=== PATIENT | male | born 1970 | race Caucasian/White ===

== ENCOUNTER 2016-10-21 17:41 | Emergency (ER) | payer MEDICAID ==
[2016-10-21] MEDS ORDERED: Aspirin 81mg Chewable Tab PO ONE (18:20)
--- NOTE | 2016-10-21 18:30 | ED Physician Chart ---
Chief Complaint/HPI - Patient Information Date Seen:: 10/21/16 Time Seen:: 18:05 Chief Complaint:: EPISODES CHEST PAIN AND SOB X 1 YEAR History of Present Illness:: This 45-year-old male presents with a one-year history of intermittent episodes of chest pain and difficulty breathing. The chest pain is usually precordial and he describes it as a pressure. The patient is pain-free at the present time but during the episodes he rates the severity of the pain as a 7/10. He states that the pain is dull and that it sometimes radiates into his neck and down his left arm. He also has associated episodes of numbness in his arms. The pain is usually accompanied by nausea without vomiting. It is also accompanied by diaphoresis. The patient doesn't smoke but he does use crystal met. Patient drinks a fair amount of beer per day. Patient has no prior history of heart problems or pulmonary problems. The patient finds that he gets short of breath much faster playing soccer now than he did a year ago. Patient denies any peripheral edema. The patient has a cough from time to time which is productive of green sputum. Occasionally he has coughed up blood. He states that the episodes are becoming more severe and more frequent intervals. Allergies:: Allergies Allergy/AdvReac Type Severity Reaction Status Date / Time No Known Allergies Allergy Verified 10/21/16 17:50 Vitals:: Vital Signs - 8 hr 10/21/16 17:50 Temp 97.5 F HR 78 RR 15 BP 151/97 O2 Sat % 95 Historian:: Patient <Bean Rizzo - Last Filed: 10/21/16 18:37> - Patient Information Allergies:: Allergies Allergy/AdvReac Type Severity Reaction Status Date / Time No Known Allergies Allergy Verified 10/21/16 17:50 Vitals:: Vital Signs - 8 hr 10/21/16 17:50 Temp 97.5 F HR 78 RR 15 BP 151/97 O2 Sat % 95 <Horacio Crane - Last Filed: 10/21/16 19:32> Review of Systems - Review of Systems General/Constitutional: No fever, No chills, Weight loss, No weakness, Diaphoresis, Loss of appetite Skin: No skin lesions, No rash Head: No headache, No light-headedness Eyes: No loss of vision, No diplopia ENT: No earache, No sore throat, No tinnitus Neck: No neck pain, No swelling, No thyromegaly, No stiffness, No mass noted Cardio Vascular: Chest pain, No palpitations, orthopnea Pulmonary: No SOB (the patient shortness of breath is by exertion.) GI: Nausea, No vomiting, No diarrhea, No pain, No hematemesis G/U: No dysuria, No frequency, Hematuria, No nacturia Musculoskeletal: No bone or joint pain, No back pain, No muscle pain Hematopoietic: No bruising, No lymphadenopathy Allergic/Immuno: No urticaria, No angioedema Neurological: No syncope, No focal symptoms, No weakness, No paresthesia, No headache, No seizure, No dizziness, No vertigo <Bean Rizzo - Last Filed: 10/21/16 18:37> Past Medical History - Past Medical History Past Medical History: HTN (not taking any medications for his hypertension.) Social History: Non Smoker, Alcohol, Illicit Drug Use (crystal met.), Single, Other (lives with his aunt.) Surgical History: Appendectomy (the patient denies anxiety but some of his symptoms such as total body numbness makeS me think that this is an issue.) <Bean Rizzo - Last Filed: 10/21/16 18:37> Family Medical History - Family Member Mother History Unknown: Yes <Horacio Crane - Last Filed: 10/21/16 19:32> Physical Exam - Physical Examination General/Constitutional: Well-developed, well-nourished, Alert, No distress, Non- toxic appearing, Ambulatory Head: Atraumatic Eyes: Lids, conjuctiva normal, PERRL, EOMI Other Eyes comments:: Bilateral horizontal nystagmus on vision to both the right and the left. Skin: No rash, No skin lesions, No ecchymosis, Well hydrated, No lymphadenopathy ENMT: External ears, nose nl, Lips, teeth, gums nl, Oropharynx nl, Tonsils nl Neck: Nontender, Full ROM w/o pain, No JVD, No nuchal rigidity, No bruit, No mass, No stridor Respiratory: Nl effort/Exclusion, No Wheeze/Rhonchi/Rales Cardio Vascular: RRR, No murmur, gallop, rubs, NL S1 S2 Other Cardio Vascular comments:: Good pulses in all 4 extremities. No peripheral edema. No calf tenderness. Homans sign is negative. GI: No tenderness/rebounding/guarding, No organomegaly, No hernia, Normal BS's, Nondistended, No mass/bruits, No McBurney tenderness : No CVA tenderness Extremities: No tenderness or effusion, Full ROM, normal strength in all extremities, No edema Misc: Normal back, No paraspinal tenderness <Bean Rizzo - Last Filed: 10/21/16 18:37> - Physical Examination Respiratory: No Wheeze/Rhonchi/Rales Other Respiratory comments:: there are bilateral ronchi heard <Horacio Crane - Last Filed: 10/21/16 19:32> Labs/Radiology/EKG Results - Lab Results Results: Laboratory Tests 10/21/16 10/21/16 10/21/16 17:45 17:45 18:30 WBC 10.0 RBC 5.30 Hgb 15.3 Hct 45.1 MCV 85.0 MCH 28.8 MCHC Differential 33.9 RDW 12.3 Plt Count 389 MPV 6.5 Neutrophils % 68.6 Lymphocytes % 18.7 L Monocytes % 8.7 Eosinophils % 2.3 Basophils % 1.7 Sodium Potassium Chloride Carbon Dioxide Anion Gap BUN Creatinine Est GFR ( Amer) Est GFR (Non-Af Amer) BUN/Creatinine Ratio Glucose Calcium Total Bilirubin AST ALT Alkaline Phosphatase Troponin I B-Natriuretic Peptide Total Protein Albumin Globulin Albumin/Globulin Ratio Amylase Lipase Urine Source RANDOM Urine Color YELLOW Urine Clarity CLEAR Urine pH 6.0 Ur Specific [place] 1.020 Urine Protein NEGATIVE Urine Glucose (UA) NEGATIVE Urine Ketones NEGATIVE Urine Blood SMALL H Urine Nitrate NEGATIVE Urine Bilirubin NEGATIVE Urine Urobilinogen 1.0 Ur Leukocyte Esterase NEGATIVE Urine RBC 2-5 H Urine WBC 0-2 Ur Epithelial Cells RARE Urine Bacteria OCCASIONAL Urine Mucus FEW Urine Opiates Screen NEGATIVE Urine Methadone Screen NEGATIVE Ur Barbiturates Screen NEGATIVE Ur Tricyclics Screen NEGATIVE Ur Phencyclidine Scrn NEGATIVE Amphetamines Screen NEGATIVE U Methamphetamines Scrn NEGATIVE U Benzodiazepines Scrn NEGATIVE U Cocaine Metab Screen NEGATIVE U Cannabinoids Screen NEGATIVE 10/21/16 10/21/16 18:30 18:30 WBC RBC Hgb Hct MCV MCH MCHC Differential RDW Plt Count MPV Neutrophils % Lymphocytes % Monocytes % Eosinophils % Basophils % Sodium 134 L Potassium 3.4 L Chloride 104 Carbon Dioxide 22.9 Anion Gap 10.5 BUN 10 Creatinine 0.8 Est GFR ( Amer) > 60.0 Est GFR (Non-Af Amer) > 60.0 BUN/Creatinine Ratio 12.5 Glucose 109 H Calcium 9.3 Total Bilirubin 0.5 AST 22 ALT 33 Alkaline Phosphatase 60 Troponin I < 0.01 L B-Natriuretic Peptide 18.2 Total Protein 7.0 Albumin 3.9 L Globulin 3.1 Albumin/Globulin Ratio 1.3 Amylase 44 Lipase 26 Urine Source Urine Color Urine Clarity Urine pH Ur Specific [place] Urine Protein Urine Glucose (UA) Urine Ketones Urine Blood Urine Nitrate Urine Bilirubin Urine Urobilinogen Ur Leukocyte Esterase Urine RBC Urine WBC Ur Epithelial Cells Urine Bacteria Urine Mucus Urine Opiates Screen Urine Methadone Screen Ur Barbiturates Screen Ur Tricyclics Screen Ur Phencyclidine Scrn Amphetamines Screen U Methamphetamines Scrn U Benzodiazepines Scrn U Cocaine Metab Screen U Cannabinoids Screen - Radiology Results Results: chest x-ray = nad - EKG Interpretations EKG Time:: 18:29 Rate & Rhythm: 82, SINUS [place]: LEFT <Horacio Crane - Last Filed: 10/21/16 19:32> Assessment - Assessment General Assessment: atypical chest pain bronchitis <Horacio Crane - Last Filed: 10/21/16 19:32> ED Septic Shock - <6hrs of presentation: Vital Signs: Vital Signs - 8 hr 10/21/16 17:50 Temp 97.5 F HR 78 RR 15 BP 151/97 O2 Sat % 95 <Bean Rizzo - Last Filed: 10/21/16 18:37> - . Is Septic Shock (SBP<90, OR Lactate>4 mmol\L) present?: No - <6hrs of presentation: Vital Signs: Vital Signs - 8 hr 10/21/16 17:50 Temp 97.5 F HR 78 RR 15 BP 151/97 O2 Sat % 95 <Horacio Crane - Last Filed: 10/21/16 19:32> Reassessment (Disposition) - Reassessment Reassessment:: bronchitis atypical chest pain - Diagnosis Diagnosis:: atypical chest pain - Aftercare/Follow up Instructions Aftercare/Follow-Up Instructions:: Counseled pt regarding lab results/diagnosis & need follow up, Refer to Discharge Instructions, Counseled pt & family regarding lab results/diagnosis & need follow up - Patient Disposition Discharge/Transfer:: Home Condition at Disposition:: Improved <Horacio Crane - Last Filed: 10/21/16 19:32> ED Discharge Plan <Bean Rizzo - Last Filed: 10/21/16 18:37> <Horacio Crane - Last Filed: 10/21/16 19:32> - Patient Disposition Admit/Discharge/Transfer: PT DISCHARGED HOME Condition at Disposition: Improved
[2016-10-21] MEDS ORDERED: Aspirin 81mg Chewable Tab ONE (18:33)
[2016-10-21 18:37] LABS: % BASOPHILS 1.7 % (0.0-2.0); % EOSINOPHILS 2.3 % (0.0-5.0); % LYMPHOCYTES 18.7 % (20.0-50.0); % MONOCYTES 8.7 % (2.0-10.0); % NEUTROPHILS 68.6 % (40.0-80.0); HEMATOCRIT 45.1 % (39.0-49.0); HEMOGLOBIN 15.3 gm/dL (13.2-17.3); MEAN CORPUSCULAR HEMOGLOBIN 28.8 pg (26.0-30.0); MEAN CORPUSCULAR HGB CONC 33.9 pg (28.0-36.0); MEAN PLATELET VOLUME 6.5 fl; NEUTROPHILE ABSOLUTE 6.8 Th/cmm (1.8-8.0); PLATELET COUNT 389 Th/cmm (150-400); RED CELL DISTRIBUTION WIDTH 12.3 % (11.5-20.0)
[2016-10-21 18:53] LABS: ALB/GLOB RATIO 1.3 (1.0-1.8); ALKALINE PHOSPHATASE 60 U/L (34-104); AMYLASE SERUM 44 U/L (29-103); ANION GAP 10.5 (7.0-16.0); BILIRUBIN,TOTAL 0.5 mg/dL (0.3-1.0); BUN - UREA NITROGEN 10 mg/dL (7-25); BUN/CREATININE RATIO 12.5; CALCIUM SERUM 9.3 mg/dL (8.6-10.3); CARBON DIOXIDE 22.9 mEq/L (21.0-31.0); CHLORIDE 104 mEq/L (98-107); CREATININE - SERUM 0.8 mg/dL (0.7-1.3); GLUCOSE 109 mg/dL (70-105); LIPASE 26 U/L (11-82); POTASSIUM SERUM 3.4 mEq/L (3.5-5.1); SGOT 22 U/L (13-39); SGPT/ALT 33 U/L (7-52); SODIUM SERUM 134 mEq/L (136-145); TROP I < 0.01 ng/mL (0.01-0.05)
[2016-10-21 18:54] LABS: URINE BILIRUBIN NEGATIVE (NEGATIVE); URINE BLOOD SMALL (NEGATIVE); URINE GLUCOSE (UA) NEGATIVE (NEGATIVE); URINE KETONE NEGATIVE (NEGATIVE); URINE PROTEIN NEGATIVE (NEGATIVE)
[2016-10-21 18:58] LABS: BNP 18.2 pg/mL (5.0-100.0)
[2016-10-21 18:59] LABS: URINE COLOR YELLOW
[2016-10-21 19:00] LABS: URINE BACTERIA OCCASIONAL /hpf (NONE SEEN); URINE EPITHELIAL CELLS RARE /lpf (FEW); URINE WBC 0-2 /hpf (0-5)
[2016-10-21 19:03] LABS: AMPHETAMINE URINE NEGATIVE (NEGATIVE); BARBITURATES URINE NEGATIVE (NEGATIVE); METHADONE URINE NEGATIVE (NEGATIVE)
[2016-10-21] MEDS ORDERED: Potassium Chloride Elixir 20 mEq /15 mL UDC PO ONE (19:23)
--- NOTE | 2016-10-22 08:42 | Diagnostic Imaging Report ---
CHEST X-RAY: AP view INDICATION: Dyspnea COMPARISON: None FINDINGS: There is no focal consolidation or pleural effusions The heart is normal in size. The osseous structures demonstrate no acute abnormalities. IMPRESSION: No acute cardiopulmonary disease. No evidence of CHF.
== END 2016-10-21 19:40 | disposition home or self-care (01) ==
LOC: ER 17:41
DX: R07.89 Other chest pain (principal); J40 Bronchitis, not specified as acute or chronic; I10 Essential (primary) hypertension; Z90.49 Acquired absence of other specified parts of digestive tract
CPT/HCPCS: 36415-UA; 71010-TC; 80053-TC; 80307; 81001-TC; 82150-TC; 83690-TC; 83880-TC; 84484-TC; 85025-TC; 93005; Z7610